=== PATIENT | female | born 1955 | race Caucasian/White ===

== ENCOUNTER → 2018-06-10 | Outpatient (CLI) | payer BC, MEDICARE | END | disposition home or self-care (01) | LOC: WOUNDCARE 08:58 | DX: L59.8 Other specified disorders of the skin and subcutaneous tissue related to radiation (principal); C06.9 Malignant neoplasm of mouth, unspecified; E11.9 Type 2 diabetes mellitus without complications; E03.9 Hypothyroidism, unspecified; Z87.891 Personal history of nicotine dependence ==

== ENCOUNTER → 2018-06-17 | Outpatient (CLI) | payer BC, MEDICARE | END | disposition home or self-care (01) | LOC: WOUNDCARE 10:49 | DX: C06.9 Malignant neoplasm of mouth, unspecified (principal); E11.9 Type 2 diabetes mellitus without complications; L59.8 Other specified disorders of the skin and subcutaneous tissue related to radiation; E03.9 Hypothyroidism, unspecified; Z87.891 Personal history of nicotine dependence; W88.8XXD Exposure to other ionizing radiation, subsequent encounter ==

== ENCOUNTER → 2018-06-18 | Outpatient (CLI) | payer BC, MEDICARE | END | disposition home or self-care (01) | LOC: WOUNDCARE 02:25 | DX: L59.8 Other specified disorders of the skin and subcutaneous tissue related to radiation (principal); C06.9 Malignant neoplasm of mouth, unspecified; E11.69 Type 2 diabetes mellitus with other specified complication; E03.9 Hypothyroidism, unspecified; Z87.891 Personal history of nicotine dependence; W88.8XXD Exposure to other ionizing radiation, subsequent encounter ==

== ENCOUNTER → 2018-06-19 | Outpatient (CLI) | payer BC, MEDICARE | END | disposition home or self-care (01) | LOC: WOUNDCARE 00:44 | DX: L59.8 Other specified disorders of the skin and subcutaneous tissue related to radiation (principal); C06.9 Malignant neoplasm of mouth, unspecified; E11.9 Type 2 diabetes mellitus without complications; E03.9 Hypothyroidism, unspecified; Z87.891 Personal history of nicotine dependence; W88.8XXD Exposure to other ionizing radiation, subsequent encounter ==

== ENCOUNTER → 2018-06-20 | Outpatient (CLI) | payer BC, MEDICARE | END | disposition home or self-care (01) | LOC: WOUNDCARE 04:55 | DX: L59.8 Other specified disorders of the skin and subcutaneous tissue related to radiation (principal); C06.9 Malignant neoplasm of mouth, unspecified; E11.9 Type 2 diabetes mellitus without complications; E03.9 Hypothyroidism, unspecified; Z87.891 Personal history of nicotine dependence; W88.8XXD Exposure to other ionizing radiation, subsequent encounter ==

== ENCOUNTER → 2018-06-21 | Outpatient (CLI) | payer BC, MEDICARE | END | disposition home or self-care (01) | LOC: WOUNDCARE 01:09 | DX: L59.8 Other specified disorders of the skin and subcutaneous tissue related to radiation (principal); C06.9 Malignant neoplasm of mouth, unspecified; E11.9 Type 2 diabetes mellitus without complications; E03.9 Hypothyroidism, unspecified; Z87.891 Personal history of nicotine dependence; W88.8XXD Exposure to other ionizing radiation, subsequent encounter ==

== ENCOUNTER → 2018-06-25 | Outpatient (CLI) | payer BC, MEDICARE | END | disposition home or self-care (01) | LOC: WOUNDCARE 00:40 | DX: L59.8 Other specified disorders of the skin and subcutaneous tissue related to radiation (principal); C06.9 Malignant neoplasm of mouth, unspecified; E11.9 Type 2 diabetes mellitus without complications; E03.9 Hypothyroidism, unspecified; Z87.891 Personal history of nicotine dependence; W88.8XXD Exposure to other ionizing radiation, subsequent encounter ==

== ENCOUNTER → 2018-06-27 | Outpatient (CLI) | payer BC, MEDICARE | END | disposition home or self-care (01) | LOC: WOUNDCARE 02:13 | DX: L59.8 Other specified disorders of the skin and subcutaneous tissue related to radiation (principal); C06.9 Malignant neoplasm of mouth, unspecified; E11.9 Type 2 diabetes mellitus without complications; E03.9 Hypothyroidism, unspecified; Z87.891 Personal history of nicotine dependence; W88.8XXD Exposure to other ionizing radiation, subsequent encounter ==

== ENCOUNTER → 2018-06-28 | Outpatient (CLI) | payer BC, MEDICARE | END | disposition home or self-care (01) | LOC: WOUNDCARE 10:34 | DX: L59.8 Other specified disorders of the skin and subcutaneous tissue related to radiation (principal); C06.9 Malignant neoplasm of mouth, unspecified; E11.9 Type 2 diabetes mellitus without complications; E03.9 Hypothyroidism, unspecified; Z87.891 Personal history of nicotine dependence; W88.8XXD Exposure to other ionizing radiation, subsequent encounter ==

== ENCOUNTER → 2018-07-01 | Outpatient (CLI) | payer BC, MEDICARE | END | disposition home or self-care (01) | LOC: WOUNDCARE 01:03 | DX: L59.8 Other specified disorders of the skin and subcutaneous tissue related to radiation (principal); C06.9 Malignant neoplasm of mouth, unspecified; E11.9 Type 2 diabetes mellitus without complications; E03.9 Hypothyroidism, unspecified; Z87.891 Personal history of nicotine dependence; Z85.89 Personal history of malignant neoplasm of other organs and systems; W88.8XXD Exposure to other ionizing radiation, subsequent encounter ==

== ENCOUNTER → 2018-07-02 | Outpatient (CLI) | payer BC, MEDICARE | END | disposition home or self-care (01) | LOC: WOUNDCARE 02:25 | DX: L59.8 Other specified disorders of the skin and subcutaneous tissue related to radiation (principal); C06.9 Malignant neoplasm of mouth, unspecified; E11.9 Type 2 diabetes mellitus without complications; E03.9 Hypothyroidism, unspecified; Z87.891 Personal history of nicotine dependence; Z85.89 Personal history of malignant neoplasm of other organs and systems; W88.8XXD Exposure to other ionizing radiation, subsequent encounter ==

== ENCOUNTER → 2018-07-04 | Outpatient (CLI) | payer BC, MEDICARE | END | disposition home or self-care (01) | LOC: WOUNDCARE 03:07 | DX: L59.8 Other specified disorders of the skin and subcutaneous tissue related to radiation (principal); C06.9 Malignant neoplasm of mouth, unspecified; E11.9 Type 2 diabetes mellitus without complications; E03.9 Hypothyroidism, unspecified; Z85.89 Personal history of malignant neoplasm of other organs and systems; Z87.891 Personal history of nicotine dependence; W88.8XXD Exposure to other ionizing radiation, subsequent encounter ==

== ENCOUNTER → 2018-07-05 | Outpatient (CLI) | payer BC, MEDICARE | END | disposition home or self-care (01) | LOC: WOUNDCARE 02:05 | DX: L59.8 Other specified disorders of the skin and subcutaneous tissue related to radiation (principal); C06.9 Malignant neoplasm of mouth, unspecified; E11.9 Type 2 diabetes mellitus without complications; E03.9 Hypothyroidism, unspecified; Z85.89 Personal history of malignant neoplasm of other organs and systems; Z87.891 Personal history of nicotine dependence; W88.8XXD Exposure to other ionizing radiation, subsequent encounter ==

== ENCOUNTER → 2018-07-10 | Outpatient (CLI) | payer BC, MEDICARE | END | disposition home or self-care (01) | LOC: WOUNDCARE 01:14 | DX: L59.8 Other specified disorders of the skin and subcutaneous tissue related to radiation (principal); C06.9 Malignant neoplasm of mouth, unspecified; E11.9 Type 2 diabetes mellitus without complications; E03.9 Hypothyroidism, unspecified; Z85.89 Personal history of malignant neoplasm of other organs and systems; W88.8XXD Exposure to other ionizing radiation, subsequent encounter; Z87.891 Personal history of nicotine dependence ==

== ENCOUNTER → 2018-07-11 | Outpatient (CLI) | payer BC, MEDICARE | END | disposition home or self-care (01) | LOC: WOUNDCARE 01:21 | DX: L59.8 Other specified disorders of the skin and subcutaneous tissue related to radiation (principal); C06.9 Malignant neoplasm of mouth, unspecified; E11.9 Type 2 diabetes mellitus without complications; E03.9 Hypothyroidism, unspecified; Z85.89 Personal history of malignant neoplasm of other organs and systems; Z87.891 Personal history of nicotine dependence; W88.8XXD Exposure to other ionizing radiation, subsequent encounter ==

== ENCOUNTER → 2018-07-12 | Outpatient (CLI) | payer BC, MEDICARE | END | disposition home or self-care (01) | LOC: WOUNDCARE 01:02 | DX: L59.8 Other specified disorders of the skin and subcutaneous tissue related to radiation (principal); C06.9 Malignant neoplasm of mouth, unspecified; E11.9 Type 2 diabetes mellitus without complications; E03.9 Hypothyroidism, unspecified; Z87.891 Personal history of nicotine dependence; Z85.89 Personal history of malignant neoplasm of other organs and systems; W88.8XXD Exposure to other ionizing radiation, subsequent encounter ==

== ENCOUNTER → 2018-07-16 | Outpatient (CLI) | payer BC, MEDICARE | END | disposition home or self-care (01) | LOC: WOUNDCARE 04:24 | DX: L59.8 Other specified disorders of the skin and subcutaneous tissue related to radiation (principal); C06.9 Malignant neoplasm of mouth, unspecified; E11.9 Type 2 diabetes mellitus without complications; E03.9 Hypothyroidism, unspecified; Z85.89 Personal history of malignant neoplasm of other organs and systems; Z87.891 Personal history of nicotine dependence; X58.XXXD Exposure to other specified factors, subsequent encounter ==

== ENCOUNTER → 2018-07-17 | Outpatient (CLI) | payer BC, MEDICARE | END | disposition home or self-care (01) | LOC: WOUNDCARE 03:10 | DX: L59.8 Other specified disorders of the skin and subcutaneous tissue related to radiation (principal); C06.9 Malignant neoplasm of mouth, unspecified; E11.9 Type 2 diabetes mellitus without complications; E03.9 Hypothyroidism, unspecified; Z85.89 Personal history of malignant neoplasm of other organs and systems; Z87.891 Personal history of nicotine dependence; W88.8XXD Exposure to other ionizing radiation, subsequent encounter ==

== ENCOUNTER → 2018-08-05 | Outpatient (CLI) | payer BC, MEDICARE | END | disposition home or self-care (01) | LOC: WOUNDCARE 04:07 | DX: L59.8 Other specified disorders of the skin and subcutaneous tissue related to radiation (principal); C06.9 Malignant neoplasm of mouth, unspecified; E11.9 Type 2 diabetes mellitus without complications; E03.9 Hypothyroidism, unspecified; Z85.89 Personal history of malignant neoplasm of other organs and systems; Z87.891 Personal history of nicotine dependence; W88.8XXD Exposure to other ionizing radiation, subsequent encounter ==

== ENCOUNTER → 2018-08-06 | Outpatient (CLI) | payer BC, MEDICARE | END | disposition home or self-care (01) | LOC: WOUNDCARE 00:14 | DX: L59.8 Other specified disorders of the skin and subcutaneous tissue related to radiation (principal); C06.9 Malignant neoplasm of mouth, unspecified; E11.9 Type 2 diabetes mellitus without complications; E03.9 Hypothyroidism, unspecified; Z85.89 Personal history of malignant neoplasm of other organs and systems; Z87.891 Personal history of nicotine dependence; W88.8XXD Exposure to other ionizing radiation, subsequent encounter ==

== ENCOUNTER → 2018-08-07 | Outpatient (CLI) | payer BC, MEDICARE | END | disposition home or self-care (01) | LOC: WOUNDCARE 01:23 | DX: L59.8 Other specified disorders of the skin and subcutaneous tissue related to radiation (principal); C06.9 Malignant neoplasm of mouth, unspecified; E11.9 Type 2 diabetes mellitus without complications; E03.9 Hypothyroidism, unspecified; Z85.89 Personal history of malignant neoplasm of other organs and systems; Z87.891 Personal history of nicotine dependence; W88.8XXD Exposure to other ionizing radiation, subsequent encounter ==

== ENCOUNTER → 2018-08-14 | Outpatient (CLI) | payer BC, MEDICARE | END | disposition home or self-care (01) | LOC: WOUNDCARE 02:21 | DX: L59.8 Other specified disorders of the skin and subcutaneous tissue related to radiation (principal); C06.9 Malignant neoplasm of mouth, unspecified; E11.9 Type 2 diabetes mellitus without complications; E03.9 Hypothyroidism, unspecified; Z85.89 Personal history of malignant neoplasm of other organs and systems; Z87.891 Personal history of nicotine dependence; W88.8XXD Exposure to other ionizing radiation, subsequent encounter ==

== ENCOUNTER → 2018-08-16 | Outpatient (CLI) | payer BC, MEDICARE | END | disposition home or self-care (01) | LOC: WOUNDCARE 01:43 | DX: L59.8 Other specified disorders of the skin and subcutaneous tissue related to radiation (principal); C06.9 Malignant neoplasm of mouth, unspecified; E11.9 Type 2 diabetes mellitus without complications; E03.9 Hypothyroidism, unspecified; Z85.89 Personal history of malignant neoplasm of other organs and systems; Z87.891 Personal history of nicotine dependence; W88.8XXD Exposure to other ionizing radiation, subsequent encounter ==